=== PATIENT | male | born 1990 | race American Indian/Alaskan Native ===

== ENCOUNTER 2020-07-19 15:05 | Emergency (ER) | payer SELFPAY ==
[2020-07-19 15:15] VITALS: BP 130/68
[2020-07-19] MEDS ORDERED: SODIUM CHLORIDE IRRI 500 ML 500 ML IR ONE (17:17)
[2020-07-19] MEDS ORDERED: HYDROGEN PEROXIDE 118 ML SOLUTION ONE (17:17)
--- NOTE | 2020-07-19 17:45 | Emergency Department Report ---
Upper Extremity - HPI Chief Complaint: Wound/Laceration Stated Complaint: RT FINGER INFECTED Time Seen by Provider: 07/19/20 16:43 Upper Extremity: Right Index Finger (Her right finger a few days ago causing a small puncture wound and now noticed over the last few days progressively worsening swelling with some discoloration to the proximal interphalangeal joint region pain is worse with palpation and range of motion is decreased due to pain) Occurred When: 2 Days Severity: mild Symptoms: Yes Pain with Movement, Yes Limited Range of Movement (Reports some mild numbness and tingling to the area. No fever, chills, sweats. The symptoms get worse with various movements and palpation as well. He has no suspicion for form body.), Yes Swelling, Yes Bruising/Ecchymosis ED Review of Systems ROS: Stated complaint: RT FINGER INFECTED Other details as noted in HPI Comment: All other systems reviewed and negative ED Past Medical Hx - Past Medical History Previous Medical History?: No - Surgical History Past Surgical History?: No - Social History Smoking Status: Current Every Day Smoker Substance Use Type: None - Medications Home Medications: Home Medications Medication Instructions Recorded Confirmed Last Taken Type Chlorhexidine Gluconate [Hibiclens] 10 ml TP BID #240 liquid 07/19/20 Unknown Rx Sulfamethoxazole/Trimethoprim 1 each PO BID #20 tablet 07/19/20 Unknown Rx [Bactrim Ds] cephALEXin [Keflex] 500 mg PO Q6HR #40 capsule 07/19/20 Unknown Rx traMADoL [Ultram] 50 mg PO Q6HR PRN #20 tablet 07/19/20 Unknown Rx Upper Extremity Exam - Exam General: Vital signs noted. No distress. Alert and acting appropriately. Head and Torso: No HEENT Abnormality, No Neck Tenderness, No Chest/Lungs Abnormality, No Abdominal Tenderness, No Back Tenderness Shoulder Exam: Yes Normal Range of Motion in Shoulder, No Shoulder Tenderness, No Clavicle Tenderness, No Shoulder Deformity, No AC Joint Tenderness Arm Exam: No Arm/Humerus Tenderness, No Arm Deformity Elbow: No Elbow Tenderness, No Normal Range of Motion in Elbow, No Elbow Deformity Forearm: No Forearm Tenderness, No Forearm Deformity, No Pain with Pronation, No Pain with Supination Wrist: Yes Normal ROM in Wrist, No Wrist Tenderness, No Wrist Deformity, No Snuffbox Tenderness, No Pain with Axial Thumb Compression Hand: Yes Normal ROM in Digit(s), No Hand Tenderness, No Hand Deformity, No Digit Tenderness, No Digit(s) Deformity, No Tendon Dysfunction CMS Exam: Yes Normal Capillary Refill, Yes Normal Distal Sensation, No Broken Skin, No Normal Distal Pulses ED Course Vital Signs 07/19/20 15:13 Temperature 98.0 F Pulse Rate 76 Respiratory 20 Rate Blood Pressure 130/68 O2 Sat by Pulse 96 Oximetry - Procedure Description Procedures done: Incision and drainage of the right index finger. Wound was prepped and draped in aseptic fashion. A bupivacaine block with 0.25% was placed in the index digit x4-1/2 cc. #11 blade was used to incise the abscess and copious amounts of pus was evacuated within the wound was irrigated with a medicated solution followed by normal saline and then dressed with nonstick bandage. Procedure was tolerated well no complications Critical care attestation.: If time is entered above; I have spent that time in minutes in the direct care of this critically ill patient, excluding procedure time. ED Disposition Clinical Impression: Abscess of finger Disposition: DC-01 TO HOME OR SELFCARE Is pt being admited?: No Does the pt Need Aspirin: No Condition: Stable Instructions: Acute Wound Care (ED), Incision and Drainage (ED), Abscess Incision and Drainage (ED) Additional Instructions: Please be sure to follow-up for wound evaluation in 48 to 72 hours Prescriptions: Sulfamethoxazole/Trimethoprim [Bactrim Ds] 1 each PO BID #20 tablet Chlorhexidine Gluconate [Hibiclens] 10 ml TP BID #240 liquid cephALEXin [Keflex] 500 mg PO Q6HR #40 capsule traMADoL [Ultram] 50 mg PO Q6HR PRN #20 tablet PRN Reason: Pain Referrals: PRIMARY CARE, [Primary Care Provider] - 3-5 Days [facility] [Provider Group] - 3-5 Days
== END 2020-07-19 18:26 | disposition home or self-care (01) ==
LOC: ED 15:05
DX: L02.511 Cutaneous abscess of right hand (principal); F17.200 Nicotine dependence, unspecified, uncomplicated
CPT/HCPCS: 99282